=== PATIENT | female | born 1985 | race Caucasian/White ===

== ENCOUNTER → 2017-09-19 12:36 | Outpatient (CLI) | payer OTHER, SELFPAY ==
--- NOTE | 2017-09-19 12:43 | US_ITS ---
US thyroid HISTORY: ITS.REASON: THYROIDITIS, LOW TSH LEVELS ORDERING PHYSICIAN: Romy Al PATIENT AGE: 32 years Comparison: None FINDINGS: The right lobe of the thyroid gland measures 4.5 x 1.5 x 1.9 cm with homogeneous echogenicity. There is a complex cystic lesion in the lower pole measuring 5 mm having both solid and cystic component. There is an additional 6 x 4 mm area of hypoechogenicity along the lower pole on the right The left lobe is 4.2 x 1.3 x 1.6 cm and has an unremarkable appearance IMPRESSION: Mildly enlarged thyroid gland with 2 hypoechoic nodules on the right both less than 1 cm. Consider 6 month follow-up to confirm short-term stability
== END ==
PROVIDERS: Family Provider Nurse Practitioner; PCP Nurse Practitioner; Visit Provider Nurse Practitioner Family
DX: R94.6 Abnormal results of thyroid function studies (principal); E06.9 Thyroiditis, unspecified
CPT/HCPCS: 76536

== ENCOUNTER → 2018-06-27 13:41 | Outpatient (CLI) | payer SELFPAY ==
--- NOTE | 2018-06-27 13:54 | US_ITS ---
US abdomen limited History:Right upper quadrant pain, back pain Ordering Physician:Brenna Hitchcock Patient Age: 32 years Comparison:None Findings: Pancreas:Unremarkable. No obvious mass or abnormal fluid collection. No ductal dilatation Liver:Unremarkable. No obvious mass or abnormal fluid collection. No ductal dilatation Right Kidney:Unremarkable. Normal size and echogenicity. No hydronephrosis Gallbladder:No gallstones, gallbladder wall thickening, pericholecystic fluid, or biliary dilatation. There is a small amount sludge or concentrated bile noted Impression: 1. No gallstones or gallbladder wall thickening or pericholecystic fluid. 2. Small amount of concentrated bile versus sludge
--- NOTE | 2018-06-27 13:54 | US_ITS ---
US thyroid HISTORY: Follow-up thyroiditis, follow-up thyroid nodules ITS.REASON: THYROIDITIS ORDERING PHYSICIAN: Brenna Hitchcock PATIENT AGE: 32 years Comparison: 09/19/2017 FINDINGS: The isthmus is normal at 2 mm. The right lobe is 4.3 x 1.9 x 1.8 cm. There is a 5 x 3 mm cyst within the lower pole which should age. Smaller cyst is present in the upper pole at 3 mm unchanged. The left lobe is 4.6 x 1.3 x 1.8 cm with homogeneous echogenicity. IMPRESSION: No change to small cyst of the right lobe of the thyroid gland with low level of suspicion for malignancy.. Mildly enlarged thyroid gland.
== END ==
PROVIDERS: PCP Family Medicine; Visit Provider Nurse Practitioner
DX: R10.11 Right upper quadrant pain (principal); R11.2 Nausea with vomiting, unspecified; E06.9 Thyroiditis, unspecified
CPT/HCPCS: 76536; 76705

== ENCOUNTER → 2018-07-09 09:57 | Outpatient (CLI) | payer BC, SELFPAY ==
[2018-07-09 11:37] LABS: HCG Qualitative, Serum Negative (Negative)
== END ==
PROVIDERS: Visit Provider Surgery
DX: K26.9 Duodenal ulcer, unspecified as acute or chronic, without hemorrhage or perforation (principal); R10.9 Unspecified abdominal pain
CPT/HCPCS: 36415; 84703

== ENCOUNTER → 2018-07-11 12:10 | Outpatient (CLI) | payer BC, SELFPAY ==
[2018-07-11 12:36] LABS: Hematocrit 36.2 % (37.0-47.0); Hemoglobin 11.2 g/dL (12.2-16.2)
== END ==
PROVIDERS: Visit Provider Surgery
DX: Z01.818 Encounter for other preprocedural examination (principal)
CPT/HCPCS: 36415; 85014; 85018

== ENCOUNTER → 2019-08-18 15:13 | Outpatient (CLI) | payer BC, SELFPAY ==
--- NOTE | 2019-08-18 15:20 | MM_ITS ---
PROCEDURE: MM DIG SCREENING MAMM BI W/CAD Digital Breast Tomosynthesis Included CLINICAL INDICATION: SCREENING, family hx There is a history of breast cancer patient's 2 maternal aunts. COMPARISON: This is a baseline exam TECHNIQUE: Standard CC and MLO images and 3D Tomosynthesis was obtained. R2 CAD reviewed. FINDINGS: There is a diffusely dense and heterogenic parenchymal pattern not unusual for this age. The findings are bilateral and symmetrical. There are 2 benign-appearing calcifications near the nipple right breast. Damián images are most helpful in this type of dense breast parenchyma. There is no definite suspicious lesions seen in either breast and there are no suspicious microcalcifications. IMPRESSION: Dense parenchymal pattern with no suspicious lesions seen BI-RAD Category: 2 Benign Finding(s) FOLLOW-UP: 1YR 1 Year Follow-up after the age of 42 (A letter has been sent to the patient regarding results of the study.) Dictated by: Dr. Daniel Grijalva MD 08/19/2019 14:[address] Daniel Grijalva MD in [place] 08/19/2019 14:07
--- NOTE | 2019-08-18 15:20 | US_ITS ---
PROCEDURE: US THYROID CLINICAL INDICATION: NIGHT SWEATS,FAMILYH/O THYRODI CA,RT THYROID NODULE COMPARISON: THY US thyroid from 06/27/2018 FINDINGS: Right lobe is 4.5 x 1.6 x 1.8 cm. There is a 2 mm cystic nodule in the mid polar region on the right. An ill-defined 6 x 6 mm mixed nodules present in the lower pole. Previously there mostly cystic lesion present at this area. The left lobe is 4.8 x 1.4 x 1.5 cm. A 2 mm cyst is present at the junction of the left lobe with the isthmus. No other significant anomalies are evident. IMPRESSION: Enlarged thyroid gland. A 6 mm complex nodule is present in the lower pole on the right. Previously there was a mostly cystic lesion at this region. The size is not significantly changed. Suggest 6 month follow-up to confirm stability. Dictated by: aRheel Flores MD 08/18/2019 16:40 Electronically signed by Raheel Flores MD in [place] 08/18/2019 16:40
== END ==
PROVIDERS: PCP Family Medicine; Visit Provider Family Medicine
DX: Z12.31 Encounter for screening mammogram for malignant neoplasm of breast (principal); E04.1 Nontoxic single thyroid nodule; R61 Generalized hyperhidrosis; Z80.8 Family history of malignant neoplasm of other organs or systems; Z80.3 Family history of malignant neoplasm of breast
CPT/HCPCS: 76536; 77063; 77067

== ENCOUNTER → 2020-03-09 12:53 | Outpatient (CLI) | payer BC, SELFPAY ==
--- NOTE | 2020-03-09 13:04 | US_ITS ---
PROCEDURE: US THYROID CLINICAL INDICATION: THYROID NODULE Follow-up nodule COMPARISON: US US THYROID from 08/18/2019 FINDINGS: The isthmus has an unremarkable appearance. The right lobe is 4.5 x 1.2 x 2.1 cm. Small cyst is present in the mid polar region of the right lobe at 2 mm. In the lower pole there is an ill-defined nodule at 5 x 6 mm not significantly changed. The left lobe is 4.6 x 1.2 x 1.8 cm. There is a 2 mm cyst in the lower pole medially. IMPRESSION: Small hyperechoic nodule in the lower pole on the right which is stable. TR level 3 less than 2.5 cm. Suggest continued six-month follow-up to confirm 1 year stability. Dictated by: Raheel Flores MD 03/09/2020 19:20 Raheel Flores MD in [place] 03/09/2020 19:20
== END ==
PROVIDERS: PCP Family Medicine; Visit Provider Nurse Practitioner Family
DX: E04.1 Nontoxic single thyroid nodule (principal)
CPT/HCPCS: 76536

== ENCOUNTER → 2021-08-25 14:51 | Outpatient (CLI) | payer BC, SELFPAY ==
--- NOTE | 2021-08-25 14:56 | US_ITS ---
FINAL REPORT CLINICAL HISTORY: LUPILLO S DISEASE; follow up; difficulty swallowing FINDINGS: THYROID ULTRASOUND The right lobe of the thyroid measures 4.5 x 1.7 x 1.2 cm. The left lobe of the thyroid measures 4.2 x 1.6 x 1.4 cm. The parenchyma shows normal echogenicity. There is a solid hypoechoic nodule in the right lobe of the thyroid measuring 5 x 5 x 4 mm consistent with a TI-RADS 4. There is a 3 x 2 x 1 mm cystic nodule in the left lobe of the thyroid consistent with a TI-RADS 1. IMPRESSION: Bilateral nodules as described. No follow-up required. Reviewed, Interpreted and Dictated by Fausto Gurrola III, MD Transcribed by Dennis Meza Authenticated by Fausto Gurrola III, MD on 08/25/2021 04:21:24 PM [facility]
== END ==
PROVIDERS: PCP Nurse Practitioner Family; Visit Provider Nurse Practitioner Family
DX: E06.3 Autoimmune thyroiditis (principal)
CPT/HCPCS: 76536

== ENCOUNTER 2023-10-12 10:30 | Emergency (ER) | payer BC, SELFPAY ==
--- NOTE | 2023-10-12 10:31 | ED_ITS ---
Discharge Plan Disposition Patient Disposition: Home, Self-Care Condition: Good Prescriptions Prescriptions: No Action cetirizine-pseudoephedrine 5-120 mg tablet extended release 12 hr 1 tab PO Q12H norethindrone ac-eth estradiol [Loestrin 04/27 (21)] 1-20 mg-mcg tablet 1 tab PO DAILY amoxicillin 500 mg capsule 500 mg PO Q12H 10 Days Qty: 20 0RF Referrals Follow up/Referrals: Provider,Referral, MD [Primary Care Provider] - See instructions Activity Restrictions/Add. Instructions Additional Instructions/Restrictions: As we discussed, it is unclear what caused you to feel lightheaded and passed out, but some of your symptoms were likely attributable to hyperventilation. Please continue to drink plenty of liquids and be mindful of any factors that exacerbate your symptoms. Please continue to follow-up with your primary care physician regarding your thyroid studies, although they were within normal limits today. Please return with any new or worsening symptoms. Clinical Impressions Clinical Impression: Hyperventilation, Syncope and collapse Discharge ED Provider: Paramjit Ríos Adult HPI General Chief complaint: Anxiety Stated complaint: soa,syncope Time Seen by Provider: 10/12/23 10:31 History of Present Illness HPI narrative: The patient presents with a chief complaint of sudden onset dizziness, sweating, and nausea while getting their hair done. The patient reports that these symptoms have never occurred before. The patient also experiences heaviness in their hands and worsening of dizziness and nausea upon sitting up. 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 The patient takes Zyrtec-D daily, a probiotic, and Citalopram at night. The patient denies any recent changes in thyroid medication. The patient reports not having had a thyroid ultrasound in approximately two years, despite a previous recommendation for removal within five years. The patient denies any current pain or vision issues. The patient also denies any history of smoking, alcohol consumption, or drug use. Please note that above description of symptoms, in this electronic medical record under categorization of recalled from ER triage doctor by RN are reflective of an initial nursing assessment, however, is not reflective of my full history and physical exam that was personally taken and clarified. Consequentially, this preceding description of symptoms, which may include the patient's categorized chief complaint in the EMR, do not reflect my personal clinical impression, and the ultimate description of history of present illness and patient stated complaints should be deferred to this section of the note. Unless stated otherwise or congruent with this section of the note, additional signs, symptoms, or incongruence should be interpreted as inaccurate with my clinical impression. Related Data Home Medications Medication Instructions Recorded Confirmed cetirizine 5 mg-pseudoephedrine ER 1 tab PO Q12H allergies 07/09/18 10/27/20 120 mg tablet,extended release,12hr norethindrone acetate 1 mg-ethinyl 1 tab PO DAILY 10/27/20 10/27/20 estradiol 20 mcg tablet (Loestrin) Previous Rx's Medication Instructions Recorded amoxicillin 500 mg capsule 500 mg PO Q12H otitis media 10 10/27/20 days #20 caps Allergies Allergy/AdvReac Type Severity Reaction Status Date / Time Iodinated Contrast Media Allergy Verified 10/27/20 17:42 [Iodinated Contrast Media - Oral and] [facility] Disclaimer: The information contained in this section may have been updated after the patient was seen, as this information can be updated by other users. Social History Smoking Status: Never smoker alcohol intake: current alcohol intake frequency: holidays/special occasions only current occupational status: employed Travel in the last 8 weeks: None household members: family housing: house caffeine: Yes ROS Obtained: Yes other As per HPI Physical Exam General General appearance: alert and anxious Head Head exam: atraumatic and normocephalic Eye Eye exam: Present normal appearance Neck Neck exam: Present normal inspection Chest Chest inspection: Present normal inspection and symmetric chest wall rise Respiratory Respiratory exam: Present normal lung sounds bilaterally and other (tachypnea); Absent respiratory distress Cardiovascular Cardiovascular exam: Present regular rate and normal rhythm Abdominal Exam Abdominal exam: Present soft Neurological Exam Neurological exam: Present alert and oriented X3 Psychiatric Psychiatric exam: Present normal affect and normal mood Skin Skin exam: Present warm and dry Medical Decision Making Medical Records Medical records reviewed: Yes I reviewed the patient's medical records. Mo Inquiry Pt receiving controlled substance: No Vital Signs: 10/12/23 10:39 10/12/23 11:00 10/12/23 11:30 Temperature 98.2 F Temperature Source Oral Pulse Rate 82 83 Pulse Rate [Left Radial] 95 H Respiratory Rate 18 18 16 Blood Pressure 127/86 128/86 Blood Pressure [Right Arm] 129/88 Blood Pressure Mean [Right Arm] 101 02 Sat by Pulse Oximetry 100 100 100 Oxygen Delivery Method Room Air Room Air Room Air 10/12/23 12:00 10/12/23 12:30 10/12/23 12:44 Temperature 98 F Temperature Source Oral Pulse Rate 74 81 71 Pulse Rate [Left Radial] Respiratory Rate 16 19 16 Blood Pressure 129/86 124/86 124/86 Blood Pressure [Right Arm] Blood Pressure Mean [Right Arm] 02 Sat by Pulse Oximetry 100 98 Oxygen Delivery Method Room Air Room Air Room Air Lab Data Lab Results 10/12/23 10:34: WBC 7.4, RBC 4.80, Hgb 15.2, Hct 44.7, MCV 93.0, MCH 31.7 H, MCHC 34.1, RDW 12.7, Plt Count 230, MPV 8.5, Neut % (Auto) 59.1, Lymph % (Auto) 28.4, Jewell % (Auto) 5.9, Eos % (Auto) 5.3, Baso % (Auto) 1.3, Neut # (Auto) 4.4, Lymph # (Auto) 2.1, Jewell # (Auto) 0.4, Eos # (Auto) 0.4, Baso # (Auto) 0.1, Sodium 136, Potassium 3.9, Chloride 107, Carbon Dioxide 22, Anion Gap 10.9, BUN 7, Creatinine 0.70, Estimated Creat Clear 119, Estimated GFR 95, Est GFR ( Amer) 115, Glucose 112 H, Calcium 9.7, Magnesium 1.8, Total Bilirubin 0.6, AST 30, ALT 21, Alkaline Phosphatase 66, Total Protein 7.4, Albumin 4.4, Globulin 3.0, Albumin/Globulin Ratio 1.5, TSH 0.76, Free T4 0.99, Serum HCG, Qual Negative 10/12/23 10:34 10/12/23 10:34 Orders (Tests/Meds): ED MEDICATIONS Discontinued Medications Generic Name Dose Route Start Last Admin Trade Name Freq PRN Reason Stop Dose Admin Hydroxyzine Pamoate 25 mg 10/12/23 10:49 10/12/23 11:07 Hydroxyzine Pamoate 25mg Capsule PO 10/12/23 10:50 25 mg ONCE ONE Administration Sodium Chloride 1,000 mls @ 999 mls/hr 10/12/23 10:49 10/12/23 11:07 Sod Chlor 0.9% 1000ml Bag IV 10/12/23 11:49 999 mls/hr .Q1H1M ONE Administration ORDERS Category Date Time Status CBC w/Auto Diff [Complete Blood Count Auto Diff] Stat Lab 10/12/23 10:34 Completed CMP [Comprehensive Metabolic Panel] Stat Lab 10/12/23 10:34 Completed Free T4 (Free Thyroxine) Stat Lab 10/12/23 10:34 Completed HCG Qualitative, Serum Stat Lab 10/12/23 10:34 Completed MAG [Magnesium] Stat Lab 10/12/23 10:34 Completed TSH [Thyroid Stimulating Hormone] Stat Lab 10/12/23 10:34 Completed Medical Decision Narrative: Patient with history and exam per above presenting for evaluation of syncope, hyperventilation, anxiety Diagnoses considered include symptomatic anemia, , electrolyte abnormality, hypo or hyperthyroidism, panic attack, no clinical evidence to suggest venous sinus thrombosis, carotid artery dissection, patient denies any cervical movement prior to onset of symptoms. ED workup and treatment included: ED MEDICATIONS Discontinued Medications Generic Name Dose Route Start Last Admin Trade Name Freq PRN Reason Stop Dose Admin Hydroxyzine Pamoate 25 mg 10/12/23 10:49 10/12/23 11:07 Hydroxyzine Pamoate 25mg Capsule PO 10/12/23 10:50 25 mg ONCE ONE Administration Sodium Chloride 1,000 mls @ 999 mls/hr 10/12/23 10:49 10/12/23 11:07 Sod Chlor 0.9% 1000ml Bag IV 10/12/23 11:49 999 mls/hr .Q1H1M ONE Administration ORDERS Category Date Time Status CBC w/Auto Diff [Complete Blood Count Auto Diff] Stat Lab 10/12/23 10:34 Completed CMP [Comprehensive Metabolic Panel] Stat Lab 10/12/23 10:34 Completed Free T4 (Free Thyroxine) Stat Lab 10/12/23 10:34 Completed HCG Qualitative, Serum Stat Lab 10/12/23 10:34 Completed MAG [Magnesium] Stat Lab 10/12/23 10:34 Completed TSH [Thyroid Stimulating Hormone] Stat Lab 10/12/23 10:34 Completed Labs were independently interpreted by me, significant for no acute findings No imaging is indicated at this time. My clinical impression at this time is most consistent with panic attack, unclear precipitant of preceding presyncope, however patient's current symptoms were largely consistent with stigmata of hyperventilation. Upon repeat evaluation patient reports improvement of symptoms, is ambulatory, is requesting to be discharged at this time. I discussed my clinical impression with patient and answered all questions. At this time, the evidence for any other entities in the differential is insufficient to warrant any further testing or ED observation. This was explained to the patient. The patient was advised that persistent or worsening symptoms require further evaluation. I confirmed the patient's understanding of this discussion. Critical Care Critical Care Time Critical Care Time: No
--- NOTE | 2023-10-12 10:34 | ECG_ITS ---
APPROVED REPORT Exam: Resting ECG HR:83 bpm ECG Measurements Heart Rate 83 AXES ME 144 P 51 QRSd 96 QRS 58 QT 360 T 48 QTc 400 Conclusion SINUS RHYTHM NORMAL ECG Electronically signed by : CAMMIE MADRID, 10/12/2023 23:20:49
[2023-10-12 10:39] VITALS: BP 129/88; PULSE 95; RESP 18; TEMP 36.8; O2SAT 100; BMI 24.2
[2023-10-12 10:59] LABS: Basophils # 0.1 K/mm3 (0-0.2); Basophils % 1.3 % (0.1-2.0); Eosinophils # 0.4 K/mm3 (0.0-0.4); Eosinophils % 5.3 % (0.1-12.0); Hematocrit 44.7 % (37.0-47.0); Hemoglobin 15.2 g/dL (12.2-16.2); Lymphocytes # 2.1 K/mm3 (0.7-4.5); Lymphocytes % 28.4 % (10-50); Mean Corpuscular HGB Conc 34.1 g/dL (31.8-35.4); Mean Corpuscular Hemoglobin 31.7 pg (27.0-31.2); Mean Platelet Volume 8.5 fl (7.4-10.4); Monocytes # 0.4 K/mm3 (0.1-1.0); Monocytes % 5.9 % (1.7-9.3); Neutrophils # 4.4 K/mm3 (1.8-7.8); Neutrophils % 59.1 % (37.0-80.0); Platelet Count 230 K/mm3 (142-424); Red Cell Distribution Width 12.7 % (11.5-17.5); White Blood Count 7.4 K/mm3 (4.8-10.8)
[2023-10-12 11:00] VITALS: BP 127/86; PULSE 82; RESP 18; O2SAT 100
[2023-10-12 11:03] LABS: Magnesium 1.8 mg/dl (1.6-2.3)
[2023-10-12 11:04] LABS: Alanine Aminotransferase 21 U/L (12-78); Albumin Level 4.4 g/dl (3.5-5.0); Albumin/Globulin Ratio 1.5 (1.1-1.8); Alkaline Phosphatase 66 U/L (38-126); Anion Gap 10.9 mEq/L (5-15); Aspartate Amino Transferase 30 U/L (14-36); Bilirubin,Total 0.6 mg/dl (0.2-1.3); Blood Urea Nitrogen 7 mg/dl (7-17); Calcium 9.7 mg/dl (8.4-10.2); Carbon Dioxide 22 mmol/L (22.0-30.0); Chloride 107 mmol/L (98-107); Creatinine Clearance Estimated 119 mL/min (50-200); Estimated Glomerular Filt Rate 95 ml/min (>60); GFR (African American) 115 ML/MIN (>60); Glucose 112 mg/dl (74-100); Potassium 3.9 mmoL/L (3.5-5.1); Sodium 136 mmol/L (136-145); Total Protein,Serum 7.4 g/dl (6.3-8.2)
[2023-10-12] MEDS: hydrOXYzine pamoate 25MG CAPSULE 25 MG PO (11:07)
[2023-10-12] MEDS: 0.9 % SODIUM CHLORIDE 1000ML 1,000 ML 999 ML IV (11:07)
[2023-10-12 11:20] LABS: HCG Qualitative, Serum Negative (Negative)
[2023-10-12 11:30] VITALS: BP 128/86; PULSE 83; RESP 16; O2SAT 100
[2023-10-12 11:34] LABS: Thyroid Stimulating Hormone 0.76 uIU/mL (0.465-4.68)
[2023-10-12 11:35] LABS: Free T4 (Free Thyroxine) 0.99 ng/dl (0.78-2.19)
[2023-10-12 12:00] VITALS: BP 129/86; PULSE 74; RESP 16; O2SAT 100
[2023-10-12 12:30] VITALS: BP 124/86; PULSE 81; RESP 19; O2SAT 98
[2023-10-12 12:44] VITALS: BP 124/86; PULSE 71; RESP 16; TEMP 36.6; O2SAT 98
== END 2023-10-12 12:55 | disposition home or self-care (01) ==
PROVIDERS: Emergency Provider Emergency Medicine
DX: R55 Syncope and collapse; R06.4 Hyperventilation; R42 Dizziness and giddiness; R11.0 Nausea; E06.3 Autoimmune thyroiditis
CPT/HCPCS: 80053; 83735; 84439; 84443; 84703; 85025; 93005; 96360; 99284

== ENCOUNTER 2024-04-28 07:57 | Outpatient (CLI) | payer BC, SELFPAY ==
--- NOTE | 2024-04-28 08:12 | US_ITS ---
FINAL REPORT TECHNIQUE: Real-time grayscale and color ultrasound of the thyroid was performed. CLINICAL HISTORY: HYPOTHYROIDISM COMPARISON: 08/25/2021 FINDINGS: The thyroid gland measures 53 x 15 x 19 mm on the right and 51 x 16 x 16 mm on the left. The isthmus measures 2 mm. The parenchyma is unremarkable . Nodules: There are 2-3 mostly cystic lesions in the right lobe of the thyroid. There is a partially solid and cystic nodule on the right measuring 5 mm. Solid TR 3 lesion measuring 6 mm lower pole right lobe. IMPRESSION: 6 mm TR 3 nodule in the right. No follow-up required per TI-RADS criteria. Reviewed, Interpreted and Dictated by Jose Archer MD Transcribed by Holly Hoyos Authenticated and [facility]
== END 2024-04-28 23:59 | disposition home or self-care (01) ==
PROVIDERS: PCP Nurse Practitioner; Visit Provider Nurse Practitioner
DX: E05.90 Thyrotoxicosis, unspecified without thyrotoxic crisis or storm (principal)
CPT/HCPCS: 76536